=== PATIENT | female | born 2000 | race African-American/Black ===

== ENCOUNTER 2021-08-15 12:24 | Emergency (ER) | payer OTHER, MEDICAID ==
[~2021-08-15] VITALS: Ht 160 cm; Wt 55.0 kg
[2021-08-15 12:30] VITALS: BP 115/60
== END 2021-08-15 13:18 | disposition left against medical advice (07) ==
LOC: ER 12:51
DX: Z53.21 Procedure and treatment not carried out due to patient leaving prior to being seen by health care provider (principal)